=== PATIENT | female | born 1945 | race Caucasian/White ===

== ENCOUNTER 2017-11-29 20:16 | Inpatient (IN) | payer OTHER, MEDICARE ==
[~2017-11-29] VITALS: Ht 167.6 cm; Wt 88.5 kg
[~2017-11-29 20:16] MED LIST: ASPIRIN81 M1 PO; BYETTA10 MCG/0.0 INJ; CRESTOR 10MG10 MG PO; GLIPIZIDE ER5 M1 PO; METFORMIN500 MG PO
--- NOTE | 2017-11-29 21:31 | ED GENERAL ADULT ---
History of Present Illness General Chief Complaint: Female Urogenital Problems Stated Complaint: ?UTI, CHILLS, FEVER Source: patient, family Exam Limitations: no limitations Vital Signs & Intake/Output Vital Signs & Intake/Output Vital Signs Date Time Temp Pulse Resp B/P B/P Pulse O2 O2 Flow FiO2 Mean Ox Delivery Rate 11/30 0127 98.4 78 20 136/74 92 11/30 0026 98.7 74 18 122/63 94 Room Air 11/29 2305 97.1 82 18 115/61 95 11/29 2020 100.5 94 22 127/77 93 Room Air ED Intake and Output 11/30 0000 11/29 1200 Intake Total 1000 Output Total Balance 1000 Intake, IV 1000 Patient 198 lb Weight Weight Reported by Patient Measurement Method Patient meets several sirs criteria. No evidence of septic shock on initial evaluation Allergies Coded Allergies: Penicillins (Intermediate, FACIAL SWELLING 11/29/17) dulaglutide (From TRULICITY) (Intermediate, DIARRHEA 11/29/17) erythromycin base (Intermediate, FACIAL SWELLING 11/29/17) Reconcile Medications Amlodipine Besylate 5 MG TABLET 1 TAB PO DAILY HTN (Reported) Aspirin 81 MG TAB.CHEW 1 TAB PO DAILY CARIAC (Reported) Exenatide (Byetta) 10MCG/0.04 PEN.INJCTR 10 MCG INJ BID BM (Reported) Glipizide (Glipizide ER) 5 MG TAB.ER.24 1 TAB PO DAILY DM (Reported) METFORMIN HCL (Metformin) 500 MG TABLET 1 TAB PO BID DM (Reported) Rosuvastatin Calcium (Crestor) 10 MG TABLET 1 TAB PO PRN CHOLESTEROL ( Reported) Triage Note: TRIAGE: PT TO ER WITH DAUGHTER C/C FEVER, TIRED, WEAK AND CHILLS. ONSET 2 PM. TEMP 100.5 AT 6 PM. SPOKE WITH PMD AT SPECULATOR BEFORE FEVER AND HE PRESCRIBED LEVOFLOXACIN. TOOK 1 DOSE ABOUT THE SAME TIME SHE REALIZED SHE HAD A FEVER. CALLED SAME MD BACK AND WAS ADVISED TO GO TO HOSPITAL FOR FURTHER EVAL R/T HX OF UTI'S THAT MADE HER SEPTIC AND ALSO HX OF ECOLI IN URINE. LAST TREATED FOR UTI 2 WEEKS AGO WITH 3 DAYS OF PO CIPRO. Triage Nurses Notes Reviewed? yes Onset: Gradual Duration: hour(s): Timing: continuous Severity: moderate LMP (ages 10-50): post menopausal, hysterectomy : No Patient currently breastfeeds: No HPI: This is a 72-year-old female with history of boc-pehnlrv-cktylafhq diabetes, hypertension, recurrent urinary tract infection/urosepsis, presenting with several hours of weakness and fatigue with chills and fever. Patient states that this is her typical presentation for urinary tract infection. She has had prior septic shock episodes requiring multi-day admission to various hospitals. She called her PMD and was prescribed oral levofloxacin when she first noticed the symptoms. She took one dose prior to arrival. She decided to seek care the emergency department because she began to feel more weak and was not able to perform her ADLs at home. She endorses one episode of loose stool, denies any nausea or vomiting, shortness of breath, cough, chest pain. She runs a low- grade temp, borderline tachycardia and a mildly increased respiratory rate. Past History Travel History Traveled to [facility] past 21 day No Medical History Any Pertinent Medical History? 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 No Review of Systems Review of Systems Constitutional: Reports: chills, fever, malaise, weakness. EENTM: Reports: no symptoms. Respiratory: Reports: no symptoms. Cardiovascular: Reports: no symptoms. GI: Reports: diarrhea. Genitourinary: Reports: no symptoms. Denies: frequency, hesitation, pain, urgency. Musculoskeletal: Reports: no symptoms. Skin: Reports: no symptoms. Neurological/Psychological: Reports: no symptoms. Hematologic/Endocrine: Reports: no symptoms. Immunologic/Allergic: Reports: no symptoms. Physical Exam Physical Exam General Appearance: well developed/nourished, no apparent distress, alert Head: atraumatic, normal appearance Eyes: Bilateral: normal appearance, PERRL, EOMI. Ears, Nose, Throat: normal pharynx, normal ENT inspection, hearing grossly normal Neck: normal inspection, supple, full range of motion Respiratory: normal breath sounds, no respiratory distress, lungs clear Cardiovascular: regular rate/rhythm, normal peripheral pulses Gastrointestinal: soft, no organomegaly Back: normal range of motion Extremities: normal inspection Core Measures ACS in differential dx? No CVA/TIA Diagnosis: No Sepsis Present: Yes Sepsis Focused Exam Completed? Yes Progress Differential Diagnoses I considered the following diagnoses in my evaluation of the patient: Urinary tract infection, pyelonephritis, sepsis, metabolic derangement, viral illness, low suspicion for appendicitis or other acute intra-abdominal infection. Plan of Care: Orders Procedure Date/time Status Consistent Carbohydrate 2 11/30 B Active CBC WITHOUT DIFFERENTIAL 11/30 599 Active BASIC ELECTROLYTES PLUS BUN&CR 11/30 599 Active Weight 11/30 012 Active Vital Signs 11/30 012 Active Teach/Educate 12/01 119 Active Pain Treatment and Response 11/30 012 Active Nutritional Intake, Monitor 12/01 119 Active Isolation 11/30 012 Active Intake & Output 11/30 012 Active Patient Care Conference 12/01 119 Active Activity/Ambulation 11/30 012 Active Pathway - chart 11/29 2322 Active Misc Message 11/29 231 Active ED Holding Orders 11/29 231 Active Code Status 11/29 2317 Active Admit to inpatient 11/29 2241 Active Patient Data 11/29 224 Active Intake & Output 11/29 213 Active BLOOD CULTURE 11/29 2122 Active Straight Cath 11/29 2120 Active CULTURE,URINE 11/29 2120 Active URINALYSIS 11/29 2120 Complete LACTIC ACID 11/29 2120 Complete COMPREHENSIVE METABOLIC PANEL 11/29 2120 Complete CBC WITHOUT DIFFERENTIAL 11/29 2120 Complete EKG 11/29 2120 Active House Staff 11/29 UNK Active VTE Mechanical Prophylaxis 11/29 UNK Active Vital Signs 11/29 UNK Active FingerStick- Glucose 11/29 UNK Active Activity/Ambulation 11/29 UNK Active Current Medications Sig/Karthik Start time Last Medication Dose Stop Time Status Admin Atorvastatin Calcium 20 MG 1700 11/30 1700 AC (Lipitor) Amlodipine Besylate 5 MG DAILY 11/30 0900 AC (Norvasc) Aspirin 81 MG DAILY 11/30 09 AC (Aspirin) Insulin Aspart 0 TIDAC 11/30 0800 AC (NovoLOG) Heparin Sodium 5,000 UNIT Q8 11/30 06 AC (Porcine) Sodium Chloride 1,000 ML Q10H 11/29 2345 AC 11/30 (Normal Saline 0.9%) 0020 Laboratory Tests 11/29/17 2305: Lactic Acid Cancelled 11/29/17 2135: Anion Gap 11, Estimated GFR 40 L, BUN/Creatinine Ratio 21.5, Glucose 153 H, Lactic Acid 1.2, Calcium 8.8, Total Bilirubin 0.5, AST 14, ALT 25, Alkaline Phosphatase 82, Total Protein 6.9, Albumin 3.9, Globulin 3.0, Albumin/Globulin Ratio 1.3, CBC w Diff NO MAN DIFF REQ, RBC 4.02 L, MCV 85.4, MCH 28.4, MCHC 33.2, RDW 15.6 H, MPV 7.5, Gran % 85.3 H, Lymphocytes % 8.6 L, Monocytes % 5.6, Eosinophils % 0.4, Basophils % 0.1, Absolute Granulocytes 5.5, Absolute Lymphocytes 0.6 L, Absolute Monocytes 0.4, Absolute Eosinophils 0, Absolute Basophils 0, Urine Color YEL, Urine Clarity CLDY H, Urine pH 6.0, Ur Specific [place] 1.020, Urine Protein TRACE H, Urine Ketones NEG, Urine Nitrite POS H, Urine Bilirubin NEG, Urine Urobilinogen 0.2, Ur Leukocyte Esterase LARGE H, Ur Microscopic SEDIMENT EXAMINED, Urine RBC 3-5, Urine WBC > 75 H, Urine Bacteria PACKD H, Urine Hemoglobin TRACE-INTACT, Urine Glucose NEG Microbiology 11/29 2214 BLOOD: Blood Culture - RECD 11/29 2212 BLOOD: Blood Culture - RECD 11/29 2134 URINE ROUT: Urine Culture - RECD Planning for IV fluids, IV ceftriaxone, labs, urinalysis, urine culture, reassessment, likely admission Initial ED EKG: none Departure Departure Disposition: STILL A PATIENT Condition: Stable Clinical Impression Primary Impression: UTI (urinary tract infection) Referrals: Shai ORTIZ,Tiffanie Monroe (PCP/Family) Departure Forms: Customer Survey General Discharge Information Critical Care Note Critical Care Note Critical Care Time: non-applicable
[2017-11-29 21:43] LABS: ABSOLUTE BASOPHIL COUNT 0 /CUMM (0.0-0.2); ABSOLUTE EOSINOPHIL COUNT 0 /CUMM (0.0-0.7); ABSOLUTE GRANULOCYTE CT 5.5 /CUMM (1.4-6.5); ABSOLUTE LYMPH COUNT 0.6 /CUMM (1.2-3.4); ABSOLUTE MONOCYTE COUNT 0.4 /CUMM (0.10-0.60); BASOPHIL % 0.1 % (0.0-2.0); EOSINOPHIL % 0.4 % (0-5); HEMATOCRIT 34.3 % (37-47); MEAN CORPUSCULAR HGB 28.4 PG (27.0-31.0); MEAN CORPUSCULAR HGB CONC 33.2 G/DL (33.0-37.0); MEAN CORPUSCULAR VOLUME 85.4 FL (81.0-99.0); MEAN PLATELET VOLUME 7.5 FL (7.4-10.4); PLATELET COUNT 248 /CUMM (130-400); RBC DISTRIBUTION WIDTH 15.6 % (11.5-14.5); RED BLOOD CELL CT 4.02 /CUMM (4.20-5.40); WHITE BLOOD CELL COUNT 6.5 /CUMM (4.8-10.8)
[2017-11-29 21:45] LABS: GRANULOCYTE % 85.3 % (42.2-75.2)
--- NOTE | 2017-11-29 23:07 | History & Physical ---
LelandLizette Keith Lopez 11/29/17 1066: General Information and HPI MD Statement: I have seen and personally examined KARINA PALACIOS and documented this H&P. The patient is a 72 year old F who presented with a patient stated chief complaint of [Fever]. Source of Information: patient, old records Exam Limitations: no limitations History of Present Illness: Ms. Etienne is a 72yo F w/ PMH of hypertension, diabetes, hiatal Hernia, anemia, hx of multiple UTIs in the past with twice hospitalization in other state, likely due to prolapse however now s/p repair, with recent UTI being treated with Bactrim back in 10/18/2017, presented to ER with chief complaint of fever/ chills after being sent in by her PCP. Patient stated that she had multiple UTI in the past was mainly symptoms including fever/tired/weakness, however denied any previous symptoms of urinary burning/frequency/pain/foul-smelling. Every time she got tired and weak that when she noted that she probably had a UTI. She was recently treating outpatient by Bactrim for 7 days back in 10/18/2017, and then today she went to the PCP for another possible episode of UTI and was given Levaquin, she took 1 tablet. Everything was fine on 2 2 PM this afternoon prior to that admission, that the patient started to have a week and chills she took 1 tablet, and she took the temperature at 6 PM was found to have 100.5, and then patient was brought in to [place] for evaluation. -Baselines: Independent ambulation at home -FHx: One daughter of neuroblastoma at age of for around 40 years ago During our clinical interaction, patient denied recent travel/sick contacts, diaphoresis/night sweat/weight change/cough/SOB/Chest Pain/Palpitation/Abdominal pain/bowel movement abnormality, or other skin/musculoskeletal/neurological/mood disorders, or dietary/appetite change. -Smoking: Denied, never a smoker -Alcohol: Rare use -Rec Drugs: Denied Patient had a penicillin allergy which causes facial/lip swelling however could tolerate cephalosporin. Allergies/Medications Allergies: Coded Allergies: Penicillins (Intermediate, FACIAL SWELLING 11/29/17) dulaglutide (From TRULICITY) (Intermediate, DIARRHEA 11/29/17) erythromycin base (Intermediate, FACIAL SWELLING 11/29/17) Home Med list Amlodipine Besylate 5 MG TABLET 1 TAB PO DAILY HTN (Reported) Aspirin 81 MG TAB.CHEW 1 TAB PO DAILY CARIAC (Reported) Exenatide (Byetta) 10MCG/0.04 PEN.INJCTR 10 MCG INJ BID BM (Reported) Glipizide (Glipizide ER) 5 MG TAB.ER.24 1 TAB PO DAILY DM (Reported) METFORMIN HCL (Metformin) 500 MG TABLET 1 TAB PO BID DM (Reported) Rosuvastatin Calcium (Crestor) 10 MG TABLET 1 TAB PO PRN CHOLESTEROL ( Reported) Past History Travel History Traveled to [place] past 21 day No Medical History Neurological: NONE EENT: cataracts Cardiovascular: hypertension Respiratory: pneumonia Gastrointestinal: hiatal hernia Hepatic: NONE Renal: UTI'S URINARY SEPSIS ECOLI IN URINE Musculoskeletal: FOOT FX Psychiatric: NONE Endocrine: diabetes Blood Disorders: SLIGHT ANEMIA Cancer(s): NONE 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 Ambulation: independent IADLs Independent: shopping, housework, finances, food prep, telephone, transportation , medication admin. Review of Systems Review of Systems Constitutional: Reports: see HPI. Exam & Diagnostic Data Last 24 Hrs of Vital Signs/I&O Vital Signs Date Time Temp Pulse Resp B/P B/P Pulse O2 O2 Flow FiO2 Mean Ox Delivery Rate 11/30 2019 100.5 94 22 127/77 93 Room Air Physical Exam General Appearance Alert, Oriented X3, Cooperative, No Acute Distress Skin No Rashes, No Breakdown, No Significant Lesion Skin Temp/Moisture Exam: Warm/Dry Sepsis Skin Exam (color): Normal for Ethnicity HEENT Atraumatic, PERRLA Neck Supple Cardiovascular Regular Rate Lungs Clear to Auscultation, Normal Air Movement Abdomen Normal Bowel Sounds, Soft, No Tenderness, No CVA tenderness Neurological Normal Speech, Strength at 5/5 X4 Ext, Sensation Intact Extremities No Edema, Normal Pulses Last 24 Hrs of Labs/Peng: Laboratory Tests 11/29/17 2305: Lactic Acid Cancelled 11/29/17 2135: Anion Gap 11, Estimated GFR 40 L, BUN/Creatinine Ratio 21.5, Glucose 153 H, Lactic Acid 1.2, Calcium 8.8, Total Bilirubin 0.5, AST 14, ALT 25, Alkaline Phosphatase 82, Total Protein 6.9, Albumin 3.9, Globulin 3.0, Albumin/Globulin Ratio 1.3, CBC w Diff NO MAN DIFF REQ, RBC 4.02 L, MCV 85.4, MCH 28.4, MCHC 33.2, RDW 15.6 H, MPV 7.5, Gran % 85.3 H, Lymphocytes % 8.6 L, Monocytes % 5.6, Eosinophils % 0.4, Basophils % 0.1, Absolute Granulocytes 5.5, Absolute Lymphocytes 0.6 L, Absolute Monocytes 0.4, Absolute Eosinophils 0, Absolute Basophils 0, Urine Color YEL, Urine Clarity CLDY H, Urine pH 6.0, Ur Specific [place] 1.020, Urine Protein TRACE H, Urine Ketones NEG, Urine Nitrite POS H, Urine Bilirubin NEG, Urine Urobilinogen 0.2, Ur Leukocyte Esterase LARGE H, Ur Microscopic SEDIMENT EXAMINED, Urine RBC 3-5, Urine WBC > 75 H, Urine Bacteria PACKD H, Urine Hemoglobin TRACE-INTACT, Urine Glucose NEG Microbiology 11/29 2214 BLOOD: Blood Culture - RECD 11/29 2212 BLOOD: Blood Culture - RECD 11/29 2134 URINE ROUT: Urine Culture - RECD Assessment/Plan Assessment: On admission, Vitals: T-max 100.5, pulse 94, RR 20, BP 127/77, 93% on room air -CBC: No leukocytosis, H/H stable with 11.4/34.3 -BMP: Slightly hyponatremia 136, elevated CR 1.3 however her previous CR was 1.2 back in 2014 -UA/Microbiology: Positive for UTI -EKG: NSR w/o significant ST-T abnormalities. -Interventions in ER: Ceftriaxone 1, IV fluids Problem list/Assessment/Hospital Course: #Urosepsis (fever, tachycardia, source of infection) secondary to pyelonephritis #PMH of hypertension, diabetes, hiatal Hernia, anemia, hx of multiple UTIs in the past - Admit to general medicine, vitals per protocol however without any imaging evidence. Tailor antibiotics per clinical course/ culture was told before that she had decreased renal function, however was not diagnosis of CKD in the past. Patient was not seen a business quality assurance analyst. We will trend daily creatinine sliding scale/Accu-Chek DVT prophylaxis Pharm PPX + ALPS Diabetic Diet Full Code As Ranked By This Provider Problem List: 1. Pyelonephritis Core Measures/Misc (03/16) Acute Coronary Syndrome ACS Diagnosis: No Congestive Heart Failure Congestive Heart Failure Diagnosis No Cerebrovascular Accident CVA/TIA Diagnosis: No VTE (View Protocol) VTE Risk Factors Age>40 No Mechanical VTE Prophylaxis d/t N/A MechProphylax Ordered No VTE Pharm Prophylaxis d/t NA PharmProphylax ordered Sepsis (View protocol) Sepsis Present: Yes If YES complete Sepsis Event Note If YES complete Sepsis Event Note Steven Rice MD 11/30/17 0218: Core Measures/Misc (03/16) Sepsis (View protocol) If YES complete Sepsis Event Note If YES complete Sepsis Event Note Attending MD Review Statement Attending Statement Attending MD Statement: examined this patient, discuss w/resident/PA/DOUGH MOLDER HAND, reviewed EMR data (avail), discussed with nursing Attending Assessment/Plan: Ms. Palacios is a 72 y/o female with history of hypertension diabetes and anemia multiple recurrent UTI presents with complaints of fever chills.. 's this afternoon patient started to have weakness and chills and temperatures found to have a temperature of 100.5 and then decided to come to the ER. On Examination - blood pressure 127/77, heart rate of 94, temperature of 100.5, saturating 93% on room air Assessment UTI sepsis with suspicion of pyelonephritis LYNDA on ?CKD Diabetes mellitus Admit to general medicine, continue with IV ceftriaxone 1 g daily. Will hold off on further imaging for now. Continue with gentle hydration. We'll hold oral hypoglycemics. Follow-up on blood and urine cultures. Tino Rivera 11/30/17 0426: Core Measures/Misc (03/16) Sepsis (View protocol) If YES complete Sepsis Event Note If YES complete Sepsis Event Note Resident Review Statement Resident Statement: examined this patient, discussed with international nurse, agreed with international nurse Other Findings: Ms Palacios is a 72 year old woman w/ a PMHx of type 2 diabetes, hypertension, recurrent UTIs x 3 ( in 2018), also increased since UTIs after she had surgery of uterine prolapse 4 yrs ago, h/o two hospital admissions for the management of urosepsis (2017 and 2018) was brought in with a chief concern of weakness and fatigue associated with chills and fever Tmax 100.6 that started the afternoon of presentation. She had similar symptoms a few days ago, and was started on levofloxacin by her primary care provider, which she took one dose so far. She did not have any hematuria, abdominal pain/suprapubic pain, back pain. No recent surgeries.No chest pain, shortness of breath, palpitations. She is occassionally orthostatically dizzy, but did not have any lightheadedness, vision changes, neurological changes. She had one episode of diarrhea, which was nonbloody. At the time of admission-temperature 100.5, pulse rate 94, respiration 22, blood pressure 127/77, 93% on room air. General Exam: AAOx3, No acute distress, Skin: No rashes, no breakdown;HEENT: PERRLA, EOMI;Neck: Supple, No JVD;No cervical lymphadenopathy;CVS: Reg Rate, Normal S1,S2, No MGR;Resp: Normal air entry, no ronchi/rales;Abdomen: Soft, No tenderness, Normal Bowel Sounds;Neuro: Normal Speech, Strength 5/5 b/l x 4 extremities, Sensation intact, CN III-XII NL, Reflexes 2+;Extremities: No cyanosis, no pedal edema Pertinent lab findings- WBC 6.5 (85.3 granulocytosis), Hemoccult 11.4 (baseline 11.6), MCV 85.4. Sodium 136, potassium 4.1, chloride 100, bicarbonate 25, anion gap 11. Renal function-28, creatinine 1.3 (baseline 1.2) Lactic acid 1.2 Liver chemistries-AST 14, AST 25, alkaline phosphatase 82. Last HbA1c 09/2017-7.2. Urinalysis-cloudy, trace urine protein, urine nitrite positive, urine leukocyte esterase large, pyuria greater than 75, packed bacteria. EKG revealed normal sinus rhythm, with nonspecific T-wave changes in V4-V6. Etiology in this case with dysuria associated with fever could likely be from UTI, and pyelonephritis could be kept in differential. Bacterial etiology with Escherichia coli being the most likely organism, but other uropathogens such as Klebsiella, Citrobacter, Enterobacter are possible etiologies. Predisposing factors such as uterine prolaps surgery, and multiple recent UTIs in the last 1 year and diabetes need to be considered. Differential diagnosis considered cystitis/nephrolithiasis. Problem list: #1 UTI (recurrent) #2 hypertension #3 type 2 diabetes. -Admit the patient to general medicine. -Empiric antibiotics with ceftriaxone, pending urine, and blood culture -Monitor vitals closely -Follow CBCs daily -Treat sepsis with NS, follow blood cultures, trend lactate -Restart antihypertensives. -Hold Byetta, other oral antihyperglycemic medications. -Insulin sliding scale, and Accu-Cheks. Checklist: #1 DVT prophylaxis-subcutaneous heparin. #2 CODE STATUS-full code. #3 medication reconciliation-complete. #4 consults-none
[2017-11-29] MEDS ORDERED: AMLODIPINE BESYL5 M1 PO (23:26)
[2017-11-30 01:27] VITALS: BP 136/74
[2017-11-30 06:54] VITALS: BP 134/76
[2017-11-30 08:19] LABS: ABSOLUTE BASOPHIL COUNT 0 /CUMM (0.0-0.2); ABSOLUTE EOSINOPHIL COUNT 0 /CUMM (0.0-0.7); ABSOLUTE GRANULOCYTE CT 3.8 /CUMM (1.4-6.5); ABSOLUTE LYMPH COUNT 0.7 /CUMM (1.2-3.4); ABSOLUTE MONOCYTE COUNT 0.4 /CUMM (0.10-0.60); BASOPHIL % 0.7 % (0.0-2.0); EOSINOPHIL % 0.6 % (0-5); HEMATOCRIT 31.2 % (37-47); MEAN CORPUSCULAR HGB 28.6 PG (27.0-31.0); MEAN CORPUSCULAR HGB CONC 33.6 G/DL (33.0-37.0); MEAN CORPUSCULAR VOLUME 85.3 FL (81.0-99.0); MEAN PLATELET VOLUME 7.9 FL (7.4-10.4); PLATELET COUNT 237 /CUMM (130-400); RBC DISTRIBUTION WIDTH 15.3 % (11.5-14.5); RED BLOOD CELL CT 3.66 /CUMM (4.20-5.40)
[2017-11-30 09:24] VITALS: BP 132/66
[2017-11-30] MEDS ORDERED: CIPRO500 M1 PO (11:21)
--- NOTE | 2017-11-30 11:23 | Patient Discharge Instructions ---
Discharge Instructions General Discharge Information You were seen/treated for: Generalized weakness secondary to UTI Special Instructions: Please follow-up with your PCP within a week of discharge If you started getting weakness, fever, chills please come back to ED or talk to your primary care physician for further evaluation and management Diet Recommended Diet: Diabetic Acute Coronary Syndrome Inclusion Criteria At DC or during hospital stay patient has or had the following: ACS DIAGNOSIS No Discharge Core Measures Meds if any: Prescribed or Continued at Discharge Meds if any: NOT Prescribed or Continued at Discharge Congestive Heart Failure Inclusion Criteria At DC or during hospital stay patient has or had the following: CHF DIAGNOSIS No Discharge Core Measures Meds if any: Prescribed or Continued at Discharge Meds if any: NOT Prescribed or Continued at Discharge Cerebrovascular accident Inclusion Criteria At DC or during hospital stay patient has or had the following: CVA/TIA Diagnosis No Discharge Core Measures Meds if any: Prescribed or Continued at Discharge Meds if any: NOT Prescribed or Continued at Discharge Venous thromboembolism Inclusion Criteria VTE Diagnosis No VTE Type NONE VTE Confirmed by (Test) NONE Discharge Core Measures - Per Current guidelines, there needs to be overlap - treatment for the first 5 days of Warfarin therapy. - If discharged on Warfarin prior to 5 days of - overlap therapy, the patient will need to be - assessed for post discharge needs including - *Post discharge parental anticoagulation - *Warfarin and/or parental anticoagulation education - *Follow up date to check INR post discharge Meds if any: Prescribed or Continued at Discharge Note: Overlap Therapy is Warfarin and Anticoagulant Meds if any: NOT Prescribed or Continued at Discharge
--- NOTE | 2017-11-30 11:54 | PN- Att Addend ---
Attending Addendum Attending Brief Note Patient seen and examined. She feels well today and is extremely keen on going home today. She says she has an MRI of her abdomen and specifically of her kidney scheduled for 11 AM tomorrow. She says her PCP has been doing this to rule out a renal mass or any abnormality predisposing her to recurrent UTIs. On exam blood pressure is 130/60, pulse is 84, breathing at 16-18 and she's afebrile. As per the nurse she tolerated her diet and ambulated without any issues. On exam she is awake alert oriented, lungs are clear to auscultation, heart is S1-S2 regular and her abdomen is soft and nontender. Her labs are all essentially okay and her LYNDA has resolved nicely. Her urine culture is negative so far. She is a 72-year-old with a past medical history of hypertension, diabetes and recurrent UTIs who is here with what was thought to be a UTI having failed 1 dose of outpatient oral levofloxacin. Given that she doesn't have any SIRS markers, and has done well with the hydration and ceftriaxone with negative urine culture I think we can safely discharge her on an oral quinolone. I'm going to give her ciprofloxacin. I spoken to her closely about the need for aggressive hydration and close outpatient follow-up. She understands that if she should become nauseous, vomiting or cannot take the meds and she has to come right back. She is going to follow-up tomorrow for her MRI and then with her PCP.
== END 2017-11-30 13:38 | DRG 690 ==
LOC: ERH 20:16 → ERHI 22:41 → ENRESERV 11-30 00:47 → 2NB 11-30 01:15 → ENPENDDIS 11-30 11:28 → ENTRNSPT 11-30 13:25 → EDTRNSPTSTS 11-30 13:29 → EDTRNSPT 11-30 13:29 → 2NB 11-30 13:38 → CMPTRNSPT 11-30 13:51
PROVIDERS: Student in an Organized Health Care Education/Training Program
DX: N39.0 Urinary tract infection, site not specified (principal); N17.9 Acute kidney failure, unspecified; I10 Essential (primary) hypertension; E11.9 Type 2 diabetes mellitus without complications; D64.9 Anemia, unspecified; Z88.1 Allergy status to other antibiotic agents; Z88.0 Allergy status to penicillin; Z88.8 Allergy status to other drugs, medicaments and biological substances; Z79.84 Long term (current) use of oral hypoglycemic drugs; Z79.82 Long term (current) use of aspirin; Z96.659 Presence of unspecified artificial knee joint; Z90.710 Acquired absence of both cervix and uterus; K44.9 Diaphragmatic hernia without obstruction or gangrene
CPT/HCPCS: ERO; 36592; 81001; 82436; 87040; 87086; 93005; 93010; J0696; J1644; J3490